=== PATIENT | male | born 1985 | race Caucasian/White ===

== ENCOUNTER 2019-08-30 12:52 | Inpatient (IN) | payer OTHER ==
--- NOTE | 2019-08-30 04:28 | BHS.RME ---
<Radha Shahid - Last Filed: 08/30/19 04:25> Substance Use & Tx History - Last Treatment Where was last treatment: Rehab CIWA Nausea/Vomitin-No Nausea/No Vomiting Muscle Tremors: None Anxiety: 0-No Anxiety, at Ease Agitation: 0-Normal Activity Paroxysmal Sweats: No Perspiration Tacttile Disturbances: 0-None Auditory Disturbances: 0-None Visual Disturbances: 0-None Headache: 0-None Present (Patient is seeking admission to Rehab. There is no Rehab bed available as facility is full to capacity. Aternative treatment provided to patient.) <Lupillo Pappas - Last Filed: 08/30/19 13:23> Treatment Recommendation - Level of Care Level of Care: Outpatient (there is now a rehab bed.)
[2019-08-30 17:27] VITALS: BMI 18.4
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
[2019-08-30] MEDS ORDERED: guaiFENesin 200 MG/10 ML 10 ML UNIT-DOSE CUPS PO PRN (18:12)
[2019-08-30] MEDS ORDERED: LOPERAMIDE HCL 2 MG CAPSULE PO PRN (18:12)
[2019-08-30] MEDS ORDERED: ACETAMINOPHEN 325 MG TABLET (FP) PO PRN (18:12)
[2019-08-30] MEDS ORDERED: MAGNESIUM HYDROX 2400MG/30ML ORAL SUSPENSION 30 ML CUP PO PRN (18:12)
[2019-08-30] MEDS ORDERED: IBUPROFEN 400 MG TABLET (FP) PO PRN (18:12)
[2019-08-30] MEDS ORDERED: MENTHOL/PHENOL 1 EACH UD MM PRN (18:12)
[2019-08-30] MEDS ORDERED: P-EPHED 60MG/TRIPROLIDI 2.5MG TABLET PO PRN (18:12)
[2019-08-30] MEDS ORDERED: hydrOXYzine PAMOATE 50 MG CAPSULE (FP) PO PRN (18:12)
[2019-08-30] MEDS ORDERED: MAGNESIUM CITRATE 300 ML BOTTLE PO PRN (18:12)
[2019-08-30] MEDS: MELATONIN 5 MG TABLETS PO PRN (21:10)
[2019-08-30] MEDS: THIAMINE HCL 100 MG TABLET (FP) PO SCH (21:10)
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
[2019-08-31] MEDS: PRENATAL VITAMINS W/ FOLIC ACID TABLET (FP) PO SCH (11:32)
[2019-08-31 11:55] LABS: HEMATOCRIT 39.4 % (35.4-49); MCH 27.9 pg (25.7-33.7); MCHC 32.9 g/dl (32.0-35.9); MEAN CELL VOLUME 84.6 fl (80-96); MEAN PLT VOLUME 8.2 fl (7.5-11.1); PLATELET COUNT 277 K/MM3 (134-434); RBC 4.66 M/mm3 (4.00-5.60); RDW 14.9 % (11.9-15.9); WHITE BLOOD COUNT 11.7 K/mm3 (4.0-10.0)
[2019-08-31 12:37] LABS: ALBUMIN 3.3 g/dl (3.4-5.0); BILIRUBIN,TOTAL 0.3 mg/dL (0.2-1); BLOOD UREA NITROGEN 16.2 mg/dL (7-18); CALCIUM 8.5 mg/dL (8.5-10.1); POTASSIUM 4.5 mmol/L (3.5-5.1); TOT PROT 6.4 g/dl (6.4-8.2)
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
[2019-08-31] MEDS: MAG HYDROX/AL HYDROX/SIMETH 30 ML UNIT-DOSE CUP PO PRN (16:25)
[2019-08-31] MEDS: NICOTINE POLACRILEX 2 MG GUM BC PRN (20:35)
[2019-08-31] MEDS: THIAMINE HCL 100 MG TABLET (FP) PO SCH (21:23)
[2019-08-31] MEDS: TOLNAFTATE 1% CREAM 15 GM TUBE TP SCH (21:23)
[2019-08-31] MEDS: MELATONIN 5 MG TABLETS PO PRN (21:23)
[2019-08-31] MEDS ORDERED: QUEtiapine FUMARATE 200 MG TABLET PO SCH (22:00)
[2019-09-01] MEDS: PRENATAL VITAMINS W/ FOLIC ACID TABLET (FP) PO SCH (10:07)
[2019-09-01] MEDS: TOLNAFTATE 1% CREAM 15 GM TUBE TP SCH ×2 (10:07→21:22)
--- NOTE | 2019-09-01 10:17 | PN ---
S Progress Note Note: Psychiatric nurse practitioner note: Patient's blood pressure this morning was 87/45 HR 70. Vital signs obtained at 10:00: BP 106/53 HR 70. Patient awake, observed ambulating on the unit. Denies feeling dizzy. Reports feeling well. Due to low pressure will d/c seroquel 200mg. Will order Seroquel 100mg + Belsomra 10mg HS. Patient encouraged to increase his fluid intake. Patient in agreement with plan. Verbal consent given. Time spent with patient: 20 minutes
[2019-09-01] MEDS: MAG HYDROX/AL HYDROX/SIMETH 30 ML UNIT-DOSE CUP PO PRN (12:00)
[2019-09-01] MEDS: NICOTINE POLACRILEX 2 MG GUM BC PRN (19:21)
[2019-09-01] MEDS: QUEtiapine FUMARATE 100 MG TABLET (FP) PO SCH (21:22)
[2019-09-01] MEDS: THIAMINE HCL 100 MG TABLET (FP) PO SCH (21:23)
[2019-09-01] MEDS ORDERED: SUVOREXANT 10 MG TABLET PO PRN (22:00)
[2019-09-02] MEDS: PRENATAL VITAMINS W/ FOLIC ACID TABLET (FP) PO SCH (10:27)
[2019-09-02] MEDS: TOLNAFTATE 1% CREAM 15 GM TUBE TP SCH ×2 (10:27→22:07)
[2019-09-02] MEDS: NICOTINE POLACRILEX 2 MG GUM BC PRN ×2 (13:53→17:04)
[2019-09-02] MEDS: THIAMINE HCL 100 MG TABLET (FP) PO SCH (22:07)
[2019-09-02] MEDS: QUEtiapine FUMARATE 100 MG TABLET (FP) PO SCH (22:07)
[2019-09-02 22:20] VITALS: BP 113/61; PULSE 65
[2019-09-02 22:24] VITALS: TEMP 97.7
--- NOTE | 2019-09-02 22:36 | DS ---
[facility] Rehab Discharge Summary - [facility] Rehab Discharge Summary Admission Date: 08/30/19 Discharge Date: 09/05/19 - History Present History: Cannabis dependence, Cocaine dependence Additional Comments: CLIENT SIGNING OUT AMAMerary SCHNEIDER HAS A FAMILY EMERGENCY AND HAS TO LEAVE. DID NOT WANT TO DISCUSS FURTHER NOR IS HE OPEN TO ENCOURAGEMENT TO CONTINUE TXMENT. HE IS A/O X3 NAD. DENIES SI/HI/AVH. ACCEPTS ALL RISK DISCUSSED TO INCLUDE OVERDOSE AND . Pertinent Past History: DENIES MEDICAL HX - Discharge Physical Exam Vital Signs: Vital Signs Temperature 97.7 F 09/02/19 22:20 Pulse Rate 65 09/02/19 22:20 Respiratory Rate 18 09/02/19 22:20 Blood Pressure 113/61 09/02/19 22:20 O2 Sat by Pulse Oximetry (%) Pertinent Admission Physical Exam Findings: Laboratory Tests 08/31/19 08/31/19 08/31/19 08:05 08:05 08:05 WBC 11.7 H RBC 4.66 Hgb 13.0 Hct 39.4 MCV 84.6 MCH 27.9 MCHC 32.9 RDW 14.9 Plt Count 277 MPV 8.2 Sodium 142 Potassium 4.5 Chloride 109 H Carbon Dioxide 29 Anion Gap 4 L BUN 16.2 Creatinine 1.0 Est GFR (CKD-EPI)AfAm 113.31 Est GFR (CKD-EPI)NonAf 97.76 Random Glucose 83 Calcium 8.5 Total Bilirubin 0.3 AST 12 L ALT 14 Alkaline Phosphatase 64 Total Protein 6.4 Albumin 3.3 L RPR Titer Nonreactive - Treatment Discharge Condition: Discharge condition good Hospital Course: ADMITTED 2 DAYS AGO TO REHAB. UNEVENTFUL STAY NOW REQUESTING TO SIGN OUT AND ABORT TXMENT. - Medication Discharge Medications: Ambulatory Orders Unobtainable 05/18/16 Mirtazapine [Remeron -] 15 mg PO HS 08/30/19 Quetiapine Fumarate [Seroquel -] 200 mg PO HS 08/30/19 - Medication-Assisted Treatment (MAT) Medication-Assisted Treatment (MAT): No - Discharge Instructions Diet, activity, other medical instructions: Diet: Activity: Other medical instructions: - Diagnosis (1) Cannabis use disorder, mild, abuse Status: Acute (2) Cocaine abuse Status: Acute (3) MDMA abuse Status: Chronic (4) Nicotine dependence Status: Chronic Qualifiers: Nicotine product type: cigarettes Substance use status: uncomplicated Qualified Code(s): F17.210 - Nicotine dependence, cigarettes, uncomplicated - Follow-up Referral Minutes to complete discharge: 20 (MINUTES) - AMA Did Patient Leave Against Medical Advice: Yes
== END 2019-09-02 10:35 | disposition left against medical advice (07) | DRG 770 ==
LOC: YASAS 12:52 → Y5N 18:20
PROVIDERS: ADMIT Allergy & Immunology; ATTEND Allergy & Immunology
PROC: HZ42ZZZ Group Counseling for Substance Abuse Treatment, Cognitive-Behavioral (ICD-10-PCS; principal; 2019-08-30)
DX: F14.20 Cocaine dependence, uncomplicated (principal); F12.20 Cannabis dependence, uncomplicated; F16.20 Hallucinogen dependence, uncomplicated; F15.20 Other stimulant dependence, uncomplicated; F19.282 Other psychoactive substance dependence with psychoactive substance-induced sleep disorder; F19.24 Other psychoactive substance dependence with psychoactive substance-induced mood disorder; F25.9 Schizoaffective disorder, unspecified; F31.9 Bipolar disorder, unspecified; Z87.828 Personal history of other (healed) physical injury and trauma; Z59.0 Homelessness; Z56.0 Unemployment, unspecified
CPT/HCPCS: 36415; 80053; 85027; 86593

== ENCOUNTER 2025-01-15 14:15 | Inpatient (IN) | payer OTHER ==
[2025-01-15 14:40] VITALS: RESP 18; BMI 21.5
[2025-01-15] MEDS ORDERED: guaiFENesin 600 MG TABLET.ER (FP) PO PRN (15:06)
[2025-01-15] MEDS ORDERED: MAGNESIUM HYDROX 2400MG/30ML ORAL SUSPENSION 30 ML CUP PO PRN (15:06)
[2025-01-15] MEDS ORDERED: LOPERAMIDE HCL 2 MG CAPSULE PO PRN (15:06)
[2025-01-15] MEDS ORDERED: ACETAMINOPHEN 325 MG TABLET (FP) PO PRN (15:06)
[2025-01-15] MEDS ORDERED: MAG HYDROX/AL HYDROX/SIMETH 30 ML UNIT-DOSE CUP PO PRN (15:06)
[2025-01-15] MEDS ORDERED: hydrOXYzine PAMOATE 25 MG CAPSULE (FP) PO PRN (15:06)
[2025-01-15] MEDS ORDERED: IBUPROFEN 600 MG TABLET (FP) PO PRN (15:06)
[2025-01-15] MEDS ORDERED: IBUPROFEN 400 MG TABLET (FP) PO PRN (15:06)
[2025-01-15] MEDS ORDERED: NALOXONE (NARCAN) HCL 4 MG/0.1 ML SPRAY NS PRN (15:06)
[2025-01-15] MEDS ORDERED: POLYETHYLENE GLYCOL (HEALTHYLAX) 3350 17 GM PACKET PO PRN (15:06)
[2025-01-15] MEDS ORDERED: NICOTINE POLACRILEX 4 MG GUM BUC PRN (15:06)
[2025-01-15] MEDS ORDERED: BENZONATATE 200 MG CAPSULE PO PRN (15:06)
[2025-01-15] MEDS ORDERED: BENZOCAINE/MENTHOL (CHLORASEPTIC ) LOZENGE MM PRN (15:06)
[2025-01-15 18:56] VITALS: BP 120/106; TEMP 97.5
[2025-01-15] MEDS: PRENATAL VITAMINS W/ FOLIC ACID TABLET (FP) PO SCH (19:06)
[2025-01-15] MEDS: NICOTINE 21 MG/24 HOURS TOPICAL PATCH TD SCH (19:35)
[2025-01-15] MEDS: TUBERCULIN PPD 5 TU/0.1ML SYRINGE (IN PATIENT USE ONLY) ID ONE (19:58)
[2025-01-15 21:08] VITALS: PULSE 81
[2025-01-15] MEDS ORDERED: THIAMINE 100 MG TABLET PO SCH (22:00)
[2025-01-15] MEDS ORDERED: MELATONIN 5 MG TABLETS PO SCH (22:00)
== END 2025-01-15 21:00 | disposition left against medical advice (07) | DRG 772 ==
LOC: YASAS 14:15 → Y3NR 16:35
PROVIDERS: ADMIT Allergy & Immunology; ATTEND Psychiatry & Neurology Pain Medicine
PROC: HZ42ZZZ Group Counseling for Substance Abuse Treatment, Cognitive-Behavioral (ICD-10-PCS; principal; 2025-01-15)
DX: F14.20 Cocaine dependence, uncomplicated (principal); F12.20 Cannabis dependence, uncomplicated; F17.210 Nicotine dependence, cigarettes, uncomplicated; F25.9 Schizoaffective disorder, unspecified; F91.8 Other conduct disorders; Z91.199 Patient's noncompliance with other medical treatment and regimen due to unspecified reason
CPT/HCPCS: 80305; 80307; 87811; 93005; 93010